=== PATIENT | female | born 1975 | race Caucasian/White ===

== ENCOUNTER 2017-08-01 09:27 | Emergency (ER) | payer BC ==
[2017-08-01 10:52] VITALS: BP 110/66
--- NOTE | 2017-08-01 11:05 | UC ---
Skin Complaint HPI - HPI Summary HPI Summary: Pt reports having right foot come into contact with Janet crawford. Pt reports that she had to remove the some of the "daggers" from right foot. Pt began taking amoxicillin PO Q12h and redness has improved. Pt states that the area affected is itchy and has tiny, clear filled blisters and feels that swelling and tenderness is spreading from distal foot to proximal. - History of Current Complaint Chief Complaint: UCSkin Time Seen by Provider: 08/01/17 10:51 Stated Complaint: SKIN COMPLAINT-INSECT BITE Hx Obtained From: Patient Hx Last Menstrual Period: unknown IUD ?: No Onset/Duration: Gradual Onset, Lasting Days, Still Present Skin Exposure Onset/Duration: Days Ago Timing: Constant Onset Severity: Mild Current Severity: Moderate Location: Discrete - right distal foot Character: Swelling, Pruritus Aggravating Factor(s): Touch Alleviating Factor(s): OTC Meds, Other - antibiotics Associated Signs & Symptoms: Positive: Rash, Tenderness Related History: Insect Bite/Sting - janet bennetter - Allergy/Home Medications Allergies/Adverse Reactions: Allergies Allergy/AdvReac Type Severity Reaction Status Date / Time Sulfa Drugs Allergy Intermediate Rash Verified 08/01/17 10:47 Review of Systems Constitutional: Negative Skin: Rash Eyes: Negative ENT: Negative Respiratory: Negative Cardiovascular: Negative Gastrointestinal: Negative Genitourinary: Negative Motor: Negative Neurovascular: Negative Musculoskeletal: Edema - distal right foot Neurological: Negative Psychological: Negative Is Patient Immunocompromised?: No All Other Systems Reviewed And Are Negative: Yes PMH/Surg Hx/FS Hx/Imm Hx Previously Healthy: Yes - Surgical History Surgical History: Yes Surgery Procedure, Year, and Place: gallbladder removed, appy, , c5 c6 fusion - Family History Known Family History: Positive: Cardiac Disease - Social History Occupation: Employed Full-time Lives: With Family Alcohol Use: Occasionally Substance Use Type: None Smoking Status (MU): Never Smoked Tobacco Have You Smoked in the Last Year: No Physical Exam Triage Information Reviewed: Yes Appearance: Well-Appearing Vital Signs: Initial Vital Signs Temp 98.3 F 08/01/17 10:42 Pulse 86 08/01/17 10:42 Resp 14 08/01/17 10:42 BP 110/66 08/01/17 10:42 Vital Signs Reviewed: Yes Eye Exam: Normal ENT Exam: Normal Dental Exam: Normal Neck exam: Normal Respiratory Exam: Normal Cardiovascular Exam: Normal Musculoskeletal: Positive: Edema @ - distal right foot Neurological Exam: Normal Psychological Exam: Normal Skin: Positive: rashes - scattered tiny, clear intact blister like, mild erythema Course/Dx - Differential Diagnoses - Skin Complaint Differential Diagnoses: Cellulitis, Contact Dermatitis, Urticaria - Diagnoses Provider Diagnoses: celllulitis- right foot. contact dermatitis-right foot Discharge - Discharge Plan Condition: Stable Disposition: HOME Prescriptions: DOXYcycline CAP(*) [DOXYcycline 100MG CAP(*)] 100 mg PO Q12H #6 cap predniSONE TAB* [Deltasone TAB*] 30 mg PO DAILY #12 tab Patient Education Materials: Contact Dermatitis (ED) Referrals: Satnino Haque NP [Primary Care Provider] - If Needed Additional Instructions: Please follow up with your PCP or return to clinic as needed
== END 2017-08-01 11:17 | disposition home or self-care (01) ==
LOC: UCCORT 09:27
DX: L03.115 Cellulitis of right lower limb (principal); L25.9 Unspecified contact dermatitis, unspecified cause
CPT/HCPCS: 99212; G0463

== ENCOUNTER 2019-02-19 08:19 | Emergency (ER) | payer BC ==
--- NOTE | 2019-02-19 08:56 | UC ---
General HPI - HPI Summary HPI Summary: RN notes reviewed - Slipped off a boat 2 weeks ago approximately 4 feet. Landed on her knees and was sore for a couple days after. Has been gardening last couple of days. Yesterday had intermittent back pain, woke up this morning and it was worse. Has spasms and occasionally shooting pain. Denies numbness or tingling down legs. No loss of bowel or bladder. Pleasant 43 yo female presents with and child, c/o pain in L lat low back. Noted discomfort approx last 3-4 days with bending over. Yesterday, reached over to pull a weed, and felt sudden worse unrelenting pain. Difficulty sleeping last night d/t pain. No b/b loss. No pain proximal discomfort. No new neck pain. No recent illness, sob / rash etc. Is seeing neurologist for severe migraines, with plan for upcoming MRI neck d/t hyperreflexia (unclear specifically which reflexes). No vis / aud changes. No GI / issues. No known hx renal issues. No cp / palpitations. Hx c5-6 fusion in 2001 d/t "compression, further details are unk. Denies personal autoimmune d/o. Son does have T1DM, but specific autoimmune issue unknown. Has not eaten yet this am. No vomiting although pain made her feel nauseas trying to get out of bed. Reports that her neurologist has commented that she is hyperreflexic, and this is being worked up. - History of Current Complaint Chief Complaint: UCBackPain Stated Complaint: BACK PAIN Time Seen by Provider: 02/19/19 08:52 Hx Obtained From: Patient, Family/Rn Night Hx Last Menstrual Period: unknown IUD Pain Intensity: 5 - Allergy/Home Medications Allergies/Adverse Reactions: Allergies Allergy/AdvReac Type Severity Reaction Status Date / Time Sulfa (Sulfonamide Allergy Intermediate Rash Verified 02/19/19 08:33 Antibiotics) Home Medications: Home Medications Ibuprofen TAB* [Motrin TAB* 600 MG] 600 mg PO Q6H PRN 02/19/19 [History Confirmed 02/19/19] Multivitamin [Multiple Vitamins] 1 tab PO DAILY 02/19/19 [History Confirmed 03/05] PMH/Surg Hx/FS Hx/Imm Hx Previously Healthy: Yes - Surgical History Surgical History: Yes Surgery Procedure, Year, and Place: gallbladder removed, appy, , c5-c6 fusion, hysterectomy - Family History Known Family History: Positive: Cardiac Disease - Social History Alcohol Use: Occasionally Substance Use Type: None Smoking Status (MU): Never Smoked Tobacco Have You Smoked in the Last Year: No Review of Systems All Other Systems Reviewed And Are Negative: Yes Constitutional: Positive: Negative Skin: Positive: Negative - see hpi Eyes: Positive: Negative - see hpi ENT: Positive: Negative - see hpi Respiratory: Positive: Negative - see hpi Cardiovascular: Positive: Negative - see hpi Gastrointestinal: Positive: Negative - see hpi Genitourinary: Positive: Negative Motor: Positive: Other - see hpi Neurovascular: Positive: Other - see hpi Musculoskeletal: Positive: Other: - see hpi Neurological: Positive: Other - see hpi Psychological: Positive: Negative Is Patient Immunocompromised?: No Physical Exam Triage Information Reviewed: Yes Appearance: Well-Nourished, Pain Distress Vital Signs: Initial Vital Signs Temp 98.3 F 02/19/19 08:30 Pulse 99 02/19/19 08:30 Resp 20 02/19/19 08:30 BP 108/73 02/19/19 08:30 Pulse Ox 100 02/19/19 08:30 Vital Signs Reviewed: Yes Eye Exam: Normal - grossly nonfocal ENT Exam: Normal ENT: Positive: Nasal congestion, Nasal drainage Neck exam: Other - s/p c 5-6 fusion, scar Respiratory Exam: Normal Respiratory: Positive: Chest non-tender, Lungs clear, Normal breath sounds, No respiratory distress, No accessory muscle use Cardiovascular Exam: Normal - correlates with L radial pulse Cardiovascular: Positive: RRR, No Murmur, Pulses Normal, Brisk Capillary Refill Abdominal Exam: Normal Abdomen Description: Positive: Nontender Bowel Sounds: Positive: Present Musculoskeletal Exam: Other - Left lat paraspin + spasm. Without point bony tenderness. Some lordosis noted, likely d/t pain. C/o severe pain in L lat mid low back with slight bend forward. Denies b/b leakage. She reports able to feel perineum with toilet tissue. Distal sens both lower ext + sens to LT. Strength foot / great toe good. Able to walk, with walker, does not want wheelchair d/t pain sitting in one place too long. Reflexes - Pat 2+ R, 2++ L. + one beat clonus BLE. achilles approx 2+ bilat as tested. dp / pt palbable BLE. No skin discoloration or rash noted. Neurological Exam: Other - see [facility] Psychological Exam: Normal - conversing easily and appropriately. nad. Skin Exam: Normal - nondiaphoretic. No visible or reported rash or eccymosis. Course/Dx - Course Course Of Treatment: Last took ibuprofen 600mg po apprx 6am. Advised no more nsaid until late this afternoon (ketoralac here). Denies hx stomach ulcers. 11:[address] lumber and thoracic reports. Radiologist paged. See [facility] report(s). D/w Dr. Preston 11:45. While MRI may be indicated, not emergent today. I reviewed reports, coa / tx plan with pt and her . They were given a disc with report and images to take to her NS. They were given the opportunity to ask several insightful questions, to which I answered to the best of my ability. She is aware to go to the Emergency Department for any worse or new issues. Aware to minimize activity, no drive for now (see avs). Dr. Madden is NS on referral call here. They have a Neurosurgeon group in [place], plan to call this group. Also they will touch base with neurologist. If they need a local NS, referral can be placed to Dr. Madden (referral communication studies professor today). Feels better s/p ketoralac, flexeril. But pain returned again. [place] / zofran (pt request to minimize medication related n/v), crackers, water given here. ISTOP Reference #: [id number] - Diagnoses Provider Diagnosis: Disc herniation, Low back strain Discharge - Sign-Out/Discharge Documenting (check all that apply): Patient Departure All imaging exams completed and their final reports reviewed: Yes - Discharge Plan Condition: Stable Disposition: HOME Prescriptions: Cyclobenzaprine TAB* [Flexeril 10 MG TAB*] 10 mg PO TID PRN #30 tab PRN Reason: Spasms HYDROcodone/ACETAMIN 5-325 MG* [[place] 5-325 TAB*] 2 tab PO Q6H PRN #30 tab MDD 8 PRN Reason: Pain Ibuprofen TAB* [Motrin TAB* 600 MG] 600 mg PO Q8H PRN #40 tab PRN Reason: Pain Ondansetron HCl [Zofran] 4 mg PO Q6H PRN #20 tablet PRN Reason: Nausea Patient Education Materials: Lumbar Disc Herniation (ED), Low Back Strain (ED) Forms: *Work Release Referrals: Santino Haque NP [Primary Care Provider] - Additional Instructions: Miralax or similar every day, as needed for constipation. Drink plenty of water - you are dehydrated. Please go to the EMERGENCY DEPARTMENT for any problems, worse or new symptoms. Call your Neurosurgeon tomorrow to schedule an appointment for next available ( this week if possible). Follow up with your primary care physician, call to let the office know how you are doing. Follow up routine. Do not drive, operate heavy machinery while taking muscle relaxers, pain medication, or if you are in significant pain. - Billing Disposition and Condition Condition: STABLE Disposition: Home
[2019-02-19] MEDS ORDERED: Cyclobenzaprine TAB* 10 MG PO ONE (09:19)
[2019-02-19] MEDS ORDERED: Ketorolac INJ* 60 MG/2 ML VIAL IM ONE (09:19)
[2019-02-19 11:34] VITALS: BP 106/73
[2019-02-19] MEDS ORDERED: Ondansetron TAB* 4 MG PO ONE (12:00)
[2019-02-19] MEDS ORDERED: HYDROcodone/ACETAMIN 5-325 MG* 1 TAB PO ONE (12:00)
[2019-02-19] MEDS ORDERED: Ondansetron ODT TAB* 4 MG PO ONE (12:04)
== END 2019-02-19 12:14 | disposition home or self-care (01) ==
LOC: UCCORT 08:19
DX: S39.012A Strain of muscle, fascia and tendon of lower back, initial encounter (principal); X50.9XXA Other and unspecified overexertion or strenuous movements or postures, initial encounter; Y93.H2 Activity, gardening and landscaping; Y92.096 Garden or yard of other non-institutional residence as the place of occurrence of the external cause; M51.26 Other intervertebral disc displacement, lumbar region; K57.30 Diverticulosis of large intestine without perforation or abscess without bleeding; Z88.2 Allergy status to sulfonamides
CPT/HCPCS: 72128; 72131; 81002; 84702; 96372; 99213; A9270-GY; G0463; J1885

== ENCOUNTER 2019-07-10 08:20 | Emergency (ER) | payer BC ==
[2019-07-10 09:03] VITALS: BP 99/52
--- NOTE | 2019-07-10 09:07 | UC ---
Throat Pain/Nasal [place] HPI - HPI Summary HPI Summary: 43-year-old female with head congestion, cough, flulike symptoms. She is a school nurse. She was on an antibiotic for left upper leg cellulitis which finished on Wednesday and that cellulitis has resolved. She started experiencing cough 1 week ago which has worsened and now has a productive cough of green sputum. She denies any asthma history. She is a nonsmoker. She experience fever yesterday and today. - History of Current Complaint Chief Complaint: UCGeneralIllness Stated Complaint: COUGH,CONGESTION Time Seen by Provider: 07/10/19 08:55 Hx Obtained From: Patient Hx Last Menstrual Period: unknown IUD ?: No Onset/Duration: Gradual Onset Severity: Moderate Pain Intensity: 0 Cough: Productive - Productive cough of green sputum. - Allergies/Home Medications Allergies/Adverse Reactions: Allergies Allergy/AdvReac Type Severity Reaction Status Date / Time Sulfa (Sulfonamide Allergy Intermediate Rash Verified 07/10/19 09:03 Antibiotics) PMH/Surg Hx/FS Hx/Imm Hx Previously Healthy: Yes Neurological History: Migraine - Surgical History Surgical History: Yes Surgery Procedure, Year, and Place: gallbladder removed, appy, , c5-c6 fusion, hysterectomy - Family History Known Family History: Positive: Cardiac Disease - Social History Occupation: Employed Full-time Lives: With Family Alcohol Use: Occasionally Substance Use Type: None Smoking Status (MU): Never Smoked Tobacco Have You Smoked in the Last Year: No Review of Systems All Other Systems Reviewed And Are Negative: Yes Constitutional: Positive: Fever - Fever the past 2 days. ENT: Positive: Nasal Discharge Respiratory: Positive: Cough - Productive cough of green sputum. Gastrointestinal: Positive: Diarrhea - Patient has had diarrhea intermittently. (She had just finished Augmentin on Wednesday). Is Patient Immunocompromised?: No Physical Exam Triage Information Reviewed: Yes Appearance: Well-Appearing, No Pain Distress, Well-Nourished Vital Signs: Initial Vital Signs Temp 98.6 F 07/10/19 08:55 Pulse 86 07/10/19 08:55 Resp 18 07/10/19 08:55 BP 99/52 07/10/19 08:55 Pulse Ox 100 07/10/19 08:55 Vital Signs Reviewed: Yes Eyes: Positive: Conjunctiva Clear ENT: Positive: Hearing grossly normal, Pharynx normal, TMs normal, Uvula midline Neck: Positive: Supple, Nontender, No Lymphadenopathy Respiratory: Positive: No respiratory distress, No accessory muscle use, Wheezing - Tight cough with mild wheeze on forced expiration. Cardiovascular: Positive: RRR, No Murmur, Pulses Normal, Brisk Capillary Refill Abdomen Description: Positive: Nontender, No Organomegaly, Soft. Negative: CVA Tenderness (R), CVA Tenderness (L) Bowel Sounds: Positive: Present Musculoskeletal: Positive: Strength Intact, ROM Intact Neurological Exam: Normal Psychological Exam: Normal Skin Exam: Normal Throat Pain/Nasal Course/Dx - Course Course Of Treatment: DuoNeb treatment: Patient was feeling much better after the DuoNeb treatment with increased aeration. She continues to have some scattered rhonchi and mild wheezing with forced expiration. Chest x-ray:VIEWS: 4: Frontal dual-energy and lateral views of the chest. FINDINGS: CARDIOMEDIASTINAL SILHOUETTE: The cardiomediastinal silhouette is normal. INGRID: The ingrid are normal. PLEURA: The costophrenic angles are sharp. No pleural abnormalities are noted. LUNG PARENCHYMA: There is hyperinflation with flattening of the diaphragm and expansion of the retrosternal airspace.. ABDOMEN: The upper abdomen is clear. There is no subphrenic gas. BONES AND SOFT TISSUES: No bone or soft tissue abnormalities are noted. OTHER: None. IMPRESSION : HYPERINFLATION WHICH CAN BE SEEN WITH COPD OR REACTIVE AIRWAY DISEASE. NO ACTIVE CARDIOPULMONARY DISEASE. Rapid flu test: Negative - Differential Dx/Diagnosis Provider Diagnosis: Bronchitis Discharge ED - Sign-Out/Discharge Documenting (check all that apply): Patient Departure All imaging exams completed and their final reports reviewed: Yes - Discharge Plan Condition: Fair Disposition: HOME Prescriptions: Azithromyxin MIKE (NF) [Z-Mike (Zithromax) 250 mg tabs #6] 2 tab PO .TODAY, THEN 1 DAILY #6 tab predniSONE TAB* [Deltasone 10 MG TAB*] 10 mg PO DAILY 12 Days #30 tab Patient Education Materials: Acute Bronchitis (ED) Forms: *Work Release Referrals: Santino Haque NP [Primary Care Provider] - Additional Instructions: Go home and rest, increase fluids, take the prednisone with food. Follow-up with your primary care provider if no improvement in 3 or 4 days. - Billing Disposition and Condition Condition: FAIR Disposition: Home - Attestation Statements Provider Attestation: Per institutional requirements, I have reviewed the chart, however, I was not consulted specifically or made aware of this patient by the midlevel provider. I did not personally evaluate, interact with , or disposition this patient.
[2019-07-10] MEDS ORDERED: Albuterol/Ipratropium NEB.SOL* Albuterol 2.5 MG/Ipratropium 0.5 MG 3 ML INH ONE (09:21)
[2019-07-10 09:42] LABS: Influenza A Molecular NEGATIVE (Negative); Influenza B Molecular NEGATIVE (Negative)
== END 2019-07-10 09:54 | disposition home or self-care (01) ==
LOC: UCCORT 08:20
DX: J40 Bronchitis, not specified as acute or chronic (principal); Z88.2 Allergy status to sulfonamides
CPT/HCPCS: 71046; 99212; A9270-GY; G0463